=== PATIENT | female | born 1995 ===

== ENCOUNTER 2017-02-10 18:10 | Emergency (ER) | payer OTHER ==
[2017-02-10 18:21] VITALS: BP 137/88; PULSE 78; RESP 16; TEMP 98.5; O2SAT 99
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
--- NOTE | 2017-02-11 10:59 | RAD ---
PROCEDURE: Radiographs of the Chest and Left Ribs. HISTORY: rib injury COMPARISON: None available. TECHNIQUE: Frontal radiograph of the chest and multiple oblique radiographs of the left ribs were obtained. FINDINGS: LEFT RIBS: No fracture or focal lesion visualized. LUNGS: Clear. PLEURA: No pneumothorax or pleural fluid. CARDIOVASCULAR: Normal sized heart. No pulmonary vascular congestion. OTHER FINDINGS: None. IMPRESSION: Unremarkable radiographs of the chest and left ribs. No left rib fracture.
== END 2017-02-10 19:27 | disposition home or self-care (01) ==
LOC: H.ER 18:10
DX: S20.219A Contusion of unspecified front wall of thorax, initial encounter (principal); V43.52XA Car driver injured in collision with other type car in traffic accident, initial encounter; Y92.410 Unspecified street and highway as the place of occurrence of the external cause